=== PATIENT | male | born 1960 | race Caucasian/White ===

== ENCOUNTER 2017-06-08 01:40 | Inpatient (IN) ==
[2017-06-08] MEDS ORDERED: LEVAQUIN PO ONE (03:31)
[2017-06-08] MEDS ORDERED: LASIX IV ONE ×2 (04:21→06:12)
[2017-06-08 04:44] LABS: MANUAL DIFF NEEDED? NO
[2017-06-08 04:46] LABS: BASO% 0.3 % (0.0-0.8); EOS# 0.01 X1000 (0.0-0.7); EOS% 0.1 % (0.0-10.0); HEMATOCRIT 45.9 % (42.0-52.0); HEMOGLOBIN 15.1 g/dL (14.0-18.0); LYMPH# 1.24 X1000 (1.2-3.4); LYMPH% 15.8 % (20.5-51.1); MCH 27.8 PG (27-31); MCHC 32.9 g/dL (33-37); MCV 84.4 FL (81-99); MONO# 0.75 X1000 (0.11-0.59); MONO% 9.6 % (1.7-9.3); MPV 13.2 FL (7.4-10.4); NEUT% 74.2 % (42.2-75.2); PLT 155 X1000 (130-400); RBC 5.44 XMIL (4.7-6.1)
[2017-06-08 04:55] LABS: ALBUMIN 3.9 g/dL (3.5-5.0); CALCIUM 8.8 mg/dL (8.8-10.2); POTASSIUM 4.9 mmol/L (3.5-5.1); TOTAL BILIRUBIN 2.14 mg/dL (0.20-1.00); TOTAL PROTEIN 6.6 g/dL (6.3-8.3)
--- NOTE | 2017-06-08 07:14 | Diag Imaging Result Doc PS360 ---
EXAM: CHEST-2 VIEWS HISTORY: chf TECHNIQUE: Two views COMPARISON: None. FINDINGS: Sternal wires are present and there is a left-sided pacemaker. The lungs are hyperexpanded heart is enlarged. The pulmonary vessels are small. There may be tiny pleural effusions. There calcified mediastinal lymph nodes. There are no infiltrates. IMPRESSION: Mild cardiomegaly with questionable tiny pleural effusions. The patient may have emphysema as well. Electronically signed by Avery Renee 06/08/2017 7:11 AM
[2017-06-08] MEDS ORDERED: XANAX PO PRN (08:22)
--- NOTE | 2017-06-08 08:42 | Diag Imaging Result Doc PS360 ---
EXAM: CHEST-1 VIEW INDICATION: pulmonary edema TECHNIQUE: One view COMPARISON: 06/08/2017 FINDINGS: The lungs are stable and grossly clear. No new consolidation is identified. There is stable cardiomegaly. IMPRESSION: Stable chest with no definite acute pathology by plain radiograph. Electronically signed by Hank Marks 06/08/2017 8:40 AM
[2017-06-08] MEDS ORDERED: ALDACTONE PO SCH (09:00)
[2017-06-08] MEDS ORDERED: CRESTOR PO SCH (09:00)
[2017-06-08] MEDS ORDERED: ENTRESTO 24 MG-26 MG TABLET PO SCH (09:00)
[2017-06-08] MEDS ORDERED: KLOR-CON PO SCH (09:00)
[2017-06-08] MEDS ORDERED: COREG PO SCH (09:00)
[2017-06-08] MEDS: ASPIRIN PO SCH (09:53)
[2017-06-08] MEDS ORDERED: 1/2 NS 500 ML IV SCH (13:20)
[2017-06-08 14:03] LABS: AMYLASE 42 U/L (20-200); LIPASE 66 U/L (13-60)
--- NOTE | 2017-06-08 15:42 | Diag Imaging Result Doc PS360 ---
EXAM: LUNG SCAN / VQ HISTORY: dyspnea TECHNIQUE: 36.7 mCi DTPA given for the ventilation images. 6.3 mCi MAA given IV for the perfusion images. COMPARISON: Chest x-ray from 06/08/2017 FINDINGS: Ventilation and perfusion images obtained in multiple projections. There are no wedge shaped perfusion defects. There are no ventilation/perfusion mismatches. Normal perfusion images. IMPRESSION: No evidence of a pulmonary embolus. Electronically signed by Avery Renee 06/08/2017 3:39 PM
[2017-06-08 15:54] LABS: URINE MICRO REVIEW NEEDED? NO; URINE SOURCE CLEAN CATCH
[2017-06-08 15:57] LABS: BILIRUBIN URINE NEGATIVE (NEGATIVE); BLOOD URINE TRACE (NEGATIVE); COLOR STRAW; GLUCOSE URINE NEGATIVE (NEGATIVE); LEUKOCYTES URINE NEGATIVE (NEGATIVE); NITRITE URINE NEGATIVE (NEGATIVE); PROTEIN URINE NEGATIVE (NEGATIVE); SP GRAVITY URINE 1.004; TURBIDITY URINE CLEAR (CLEAR); UR EPITHELIAL CELLS <10 /HPF (<10); URINE BACTERIA NEGATIVE /HPF; URINE RBC <10 /HPF (<10); URINE WBC <10 /HPF (<10); UROBILINOGEN URINE NORMAL (NORMAL)
[2017-06-08] MEDS ORDERED: LASIX IV SCH (18:00)
[2017-06-08] MEDS: 1/2 NS 1,000 ML IV SCH (18:12)
[2017-06-08 21:07] LABS: UR CREAT RANDOM 15.6 mg/dL (14-26); UR PROT RANDOM 11.8 mg/dL
[2017-06-08] MEDS: CRESTOR PO SCH (22:47)
[2017-06-08] MEDS: COREG PO SCH (22:47)
[2017-06-09] MEDS: 1/2 NS 1,000 ML IV SCH ×2 (06:25→21:28)
[2017-06-09 06:44] LABS: HEMATOCRIT 43.4 % (42.0-52.0); HEMOGLOBIN 14.3 g/dL (14.0-18.0); MCH 28.1 PG (27-31); MCHC 32.9 g/dL (33-37); MCV 85.4 FL (81-99); MPV 12.9 FL (7.4-10.4); RBC 5.08 XMIL (4.7-6.1)
[2017-06-09 07:11] LABS: ALBUMIN 3.9 g/dL (3.5-5.0); CALCIUM 9.7 mg/dL (8.8-10.2); POTASSIUM 4.6 mmol/L (3.5-5.1)
--- NOTE | 2017-06-09 07:39 | Diag Imaging Result Doc PS360 ---
EXAM: US ABDOMEN-COMPLETE HISTORY: abdominal pain TECHNIQUE: Abdominal ultrasound COMMENT: There is ascites. There is a right pleural effusion. The gallbladder is markedly thickened in appearance. The common bile duct measures 2 mm. The visualized portions of the aorta and inferior vena cava are within normal limits. There are granulomata in the spleen which is not enlarged. The kidneys are without evidence of hydronephrosis or mass. There is no sonographic Hansen sign. There is antegrade flow in the portal vein. The pancreas is not well seen but the head of the pancreas is fairly normal in appearance. The liver is unremarkable otherwise. IMPRESSION: Marked thickening of the gallbladder wall which is suggestive of chronic cholecystitis. No sonographic Hansen sign is present. There are no stones. Ascites and right pleural effusion. Electronically signed by Davy Telles 06/09/2017 7:36 AM
--- NOTE | 2017-06-09 08:39 | ECHO REPORT ---
ORDER DATE: 06/08/2017 INTERPRETING PHYSICIAN: Mariano Salinas MD. INDICATION: A 57-year-old female with dyspnea, ischemic cardiomyopathy. M-MODE MEASUREMENTS: Right ventricle: 4.9 cm. Left ventricle end diastole: 6.6 cm. Left ventricle end systole: 6.3 cm. Posterior wall: 1.0 cm. Interventricular septum: 1.0 cm. Left atrium: 4.6 cm. Aortic root: 3.3 cm. SUMMARY OF 2-DIMENSIONAL IMAGIN. The left ventricular systolic function is significantly impaired. The left ventricular chamber is severely dilated. 2. The global ejection fraction by computer tracing is estimated to be in the range of 17-22%. Visually, it appears to be in the order of 15% to 20%. The impairment is really global. 3. The study, on top of that, is technically difficult. 4. The right ventricle is significantly enlarged. 5. The pulmonic valve shows a mild to moderate degree of regurgitation. The pulmonary diastolic pressure is estimated to be somewhere in the order of 26 mmHg. 6. The inferior vena cava is dilated. 7. The tricuspid valve shows a moderate degree of regurgitation. The pulmonary systolic pressure is estimated to be in the range of 56 mmHg. 8. The aortic valve has 3 cusps. Color flow mapping indicates a mild degree of regurgitation. 9. The patient is in a low cardiac output state. The LVOT VTI is only 8.4 cm. 10.The mitral valve shows thickening of the leaflets. Color flow mapping indicates a moderate to moderately severe degree of mitral regurgitation. The pulsed wave Doppler of mitral inflow shows a pseudonormal E/A ratio or pattern. The ratio is 2.6. The tissue Doppler of septal and lateral mitral annulus averages 2 cm. The E/E' ratio is about 50. 11.The pulsed wave Doppler of pulmonary venous flow shows reversal of the systolic/diastolic ratio. 12.The deceleration time of both the E wave and the mitral inflow and the diastolic filling wave in the pulmonary venous flow is very short, less than 150 msec, indicating significant elevation of the left atrial pressure. 13.The left atrium is moderately to severely dilated. SUMMARY: In summary, this study shows: 1. Markedly enlarged left ventricular chamber with severe impairment of the systolic function of the left ventricle. Ejection fraction estimated to be in the range of 15% to 20%. 2. Moderately to significantly enlarged right ventricle. 3. Pulmonary pressure estimated in the order of 56/26 mmHg. 4. Moderate degree of tricuspid regurgitation. 5. Moderately severe degree of mitral regurgitation. 6. Severe left ventricular diastolic dysfunction with significant elevation of left atrial pressure. 7. Low cardiac output state. 8. A mild degree of aortic regurgitation. 10.The study is consistent with a decompensated probably ischemic cardiomyopathy. A defibrillator/pacemaker lead was noted within the right-sided chamber. Clinical correlation recommended. cc: MD Haydee Brown PA Robert Allen, MD
[2017-06-09] MEDS ORDERED: LASIX PO SCH (09:00)
[2017-06-09] MEDS: ASPIRIN PO SCH (09:21)
[2017-06-09] MEDS: COREG PO SCH ×2 (09:21→21:27)
[2017-06-09] MEDS: PATIENT'S OWN MED PO SCH (09:25)
[2017-06-09] MEDS: PROTONIX IV SCH (16:13)
[2017-06-09] MEDS: SODIUM CHLORIDE 0.9% INJ SCH (16:13)
[2017-06-09] MEDS: CRESTOR PO SCH (21:27)
[2017-06-10] MEDS: PROTONIX IV SCH (05:45)
[2017-06-10] MEDS: SODIUM CHLORIDE 0.9% INJ SCH (05:45)
[2017-06-10 06:44] LABS: HEMATOCRIT 41.5 % (42.0-52.0); HEMOGLOBIN 13.6 g/dL (14.0-18.0); MCH 27.5 PG (27-31); MCHC 32.8 g/dL (33-37); MPV 12.7 FL (7.4-10.4); RBC 4.94 XMIL (4.7-6.1)
[2017-06-10 06:58] LABS: CALCIUM 8.4 mg/dL (8.8-10.2)
[2017-06-10 07:07] LABS: ALBUMIN 3.4 g/dL (3.5-5.0); CALCIUM 8.5 mg/dL (8.8-10.2); POTASSIUM 4.1 mmol/L (3.5-5.1)
[2017-06-10 07:24] VITALS: BP 96/67
[2017-06-10] MEDS: COREG PO SCH (08:08)
[2017-06-10] MEDS: PATIENT'S OWN MED PO SCH (08:08)
[2017-06-10] MEDS: ASPIRIN PO SCH (08:08)
[2017-06-10] MEDS: 1/2 NS 1,000 ML IV SCH (08:10)
[2017-06-10 10:50] LABS: UR CREAT RANDOM 69.2 mg/dL (14-26)
== END 2017-06-10 12:01 | disposition home or self-care (01) ==
LOC: ED 01:40 → 3N 09:35
PROVIDERS: ADMIT Family Medicine; ATTEND Family Medicine